=== PATIENT | male | born 1975 | race Caucasian/White ===

== ENCOUNTER 2022-09-15 08:19 | Day surgery (SDC) | payer OTHER ==
[~2022-09-15] VITALS: Ht 172.7 cm; Wt 116.9 kg
[2022-09-15] MEDS ORDERED: CRESTOR40 MG PO (08:59)
[2022-09-15] MEDS ORDERED: PRINIVIL10 MG PO (09:00)
[2022-09-15] MEDS ORDERED: ALLEGRA-D 24HR1 T24 PO (09:01)
[2022-09-15 09:17] VITALS: BP 135/81; PULSE 81; TEMP 98.3
[2022-09-15 09:54] VITALS: BP 119/84; PULSE 80; TEMP 97.4
[2022-09-15 10:10] VITALS: BP 135/86; PULSE 81
[2022-09-15 10:25] VITALS: BP 131/89; PULSE 73
[2022-09-15 10:27] VITALS: BP 119/84; PULSE 80
--- NOTE | 2022-09-15 10:33 | NUR ---
0954- PT. RETURNS TO [facility] VIA CART. AWAKE AND ALERT. RESPIRATIONS UNLABORED. AMBULATES TO RECLINER WITH 2:1 SBA. DENIES NAUSEA OR ABDOMINAL PAIN. VS OBTAINED. CALL LIGHT AT SIDE AND IN ROOM. 1006- DR. CARLSON IN ROOM SPEAKING TO PATIENT. 1015- PT. TOLERATES SODA AND PUDDING WITHOUT NAUSEA. 1017- D/C INSTRUCTIONS REVIEWED. PT. VERBALIZES UNDERSTANDING. COPY PROVIDED IN D/C FOLDER. 1025- PT. DRESSES SELF.
== END 2022-09-15 10:33 | disposition home or self-care (01) ==
LOC: SDCO 08:19
DX: K57.30 Diverticulosis of large intestine without perforation or abscess without bleeding (principal); E66.9 Obesity, unspecified; I10 Essential (primary) hypertension; G47.33 Obstructive sleep apnea (adult) (pediatric); Z79.899 Other long term (current) drug therapy; Z68.38 Body mass index [BMI] 38.0-38.9, adult
CPT/HCPCS: J2704; J3010